=== PATIENT | female | born 1980 | race American Indian/Alaskan Native ===

== ENCOUNTER 2018-10-30 04:31 | Inpatient (IN) | payer MEDICAID ==
[2018-10-30] MEDS ORDERED: PITOCin/NS 20 UNIT/1000ML DRIP 20,000 MILLIUNITS/1,000 ML BAG IV ONE (04:53)
[2018-10-30] MEDS ORDERED: XYLOCAINE 2% INFILTRATI ONE (04:56)
--- NOTE | 2018-10-30 05:07 | History and Physical Report ---
History of Present Illness Date of examination: 10/30/18 Date of admission: 10/30/18 04:31 Chief complaint: s/p Home delivery History of present illness: Pt is a 38yo BF EDC 11/05/18; EGA 39 1/7 weeks who delivered at home @ 0332. She received care at [facility] [place], and course has been unremarkable. records are not available. Past History Past Medical History: no pertinent history Past Surgical History: no surgical history Social history: no significant social history - Obstetrical History Expected Date of Delivery: 11/05/18 Actual Gestation: 39 Week(s) 1 Day(s) Medications and Allergies Allergies Allergy/AdvReac Type Severity Reaction Status Date / Time No Known Allergies Allergy Verified 10/30/18 04:53 Home Medications Medication Instructions Recorded Confirmed Last Taken Type Pnv Plus Multivit Tab 1 tab PO DAILY 10/30/18 10/30/18 1 Day Ago History ~10/29/18 1100 Review of Systems All systems: negative - Vital Signs Vital signs: Vital Signs Pulse BP 80 120/65 10/30/18 04:44 10/30/18 04:44 Temp Pulse Resp BP Pulse Ox 80 120/65 10/30/18 04:44 10/30/18 04:44 - Physical Exam Breasts: Positive: deferred Cardiovascular: Regular rate Lungs: Positive: Clear to auscultation Abdomen: Positive: normal appearance, soft Genitourinary (Female): Positive: perineal/vulvar lesions (2nd degree perineal laceration - repaired with 2% lidocaine and 3-O vicryl) Vagina: Positive: normal moisture Uterus: Positive: enlarged Extremities: Positive: normal Results All other labs normal. Assessment and Plan - Patient Problems (1) (normal spontaneous vaginal delivery) Onset Date: 10/30/18 Current Visit: Yes Status: Acute Plan to address problem: A: S/P Home delivery - Doing well 2nd degree perineal laceration - repaired P: Admit to L&D Obtain records.
--- NOTE | 2018-10-30 05:12 | Procedure Note ---
OB Delivery Note - Delivery Date of Delivery: 10/30/18 Surgeon: RACHEL FONG Estimated blood loss: 100cc - Vaginal Delivery presentation: unknown Intrapartum events: precipitous labor- <3hr Delivery induction: none Delivery monitor: none Delivery placenta: spontaneous Delivery cord: 3 umbilical vessels Episiotomy: none Delivery laceration: 2nd degree Delivery repair: vicryl Anesthesia: local - Infant A at 1 minute: 9 at 5 minutes: 9 Infant Gender: Male (2999gms)
[2018-10-30] MEDS ORDERED: TYLENOL PO PRN ×2 (05:15→06:41)
[2018-10-30] MEDS ORDERED: DULCOLAX PR PRN ×2 (05:15→06:41)
[2018-10-30] MEDS ORDERED: BENADRYL PO PRN ×2 (05:15→06:41)
[2018-10-30] MEDS ORDERED: DERMOPLAST TP PRN ×2 (05:15→06:41)
[2018-10-30] MEDS ORDERED: LANSINOH TP PRN ×2 (05:15→06:41)
[2018-10-30] MEDS ORDERED: ZOFRAN IV PRN ×2 (05:15→06:41)
[2018-10-30] MEDS ORDERED: MILK OF MAGNESIA PO PRN ×2 (05:15→22:00)
[2018-10-30] MEDS ORDERED: TUCKS PAD TP PRN ×2 (05:15→06:41)
[2018-10-30] MEDS ORDERED: PHENERGAN PO PRN ×2 (05:15→06:41)
[2018-10-30] MEDS ORDERED: PHENERGAN PR PRN ×2 (05:15→06:41)
[2018-10-30 05:53] LABS: Basophils # (Auto) 0.1 K/mm3 (0.0-0.1); Basophils % (Auto) 0.6 % (0.0-1.8); Eosinophils # (Auto) 0.1 K/mm3 (0.0-0.4); Eosinophils % (Auto) 0.7 % (0.0-4.3); Hematocrit 32.4 % (30.3-42.9); Hemoglobin 10.7 gm/dl (10.1-14.3); Lymphocytes # (Auto) 1.6 K/mm3 (1.2-5.4); Lymphocytes % (Auto) 14.2 % (13.4-35.0); Mean Corpuscular HGB Conc 33 % (30-34); Mean Corpuscular Volume 84 fl (79-97); Monocytes # (Auto) 1.4 K/mm3 (0.0-0.8); Platelet Count 185 K/mm3 (140-440); Red Blood Count 3.86 M/mm3 (3.65-5.03); Red Cell Distribution Width 15.1 % (13.2-15.2)
[2018-10-30] MEDS ORDERED: PITOCin/NS 20 UNIT/1000ML DRIP 20 UNITS/1,000 ML BAG IV SCH ×2 (06:00→06:41)
[2018-10-30] MEDS ORDERED: SODIUM CHLORIDE FLUSH SYRINGE 10 ML IV PRN (06:00)
[2018-10-30] MEDS: IBUPROFEN PO SCH ×2 (06:09→12:38)
[2018-10-30] MEDS: SENOKOT S PO SCH ×2 (06:09→21:31)
[2018-10-30] MEDS ORDERED: SODIUM CHLORIDE FLUSH SYRINGE 10 ML IV NR (06:41)
[2018-10-30] MEDS ORDERED: SENOKOT S PO SCH (06:41)
[2018-10-30] MEDS ORDERED: IBUPROFEN PO SCH (06:41)
[2018-10-30] MEDS: NORCO 5/325 PO PRN ×2 (08:07→20:02)
[2018-10-30] MEDS ORDERED: FEOSOL PO SCH (10:00)
[2018-10-30] MEDS ORDERED: PRENATAL VITAMIN PO SCH (10:00)
[2018-10-30] MEDS: PRENATAL VITAMIN PO SCH (10:37)
[2018-10-30] MEDS: FEOSOL PO SCH ×2 (12:41→21:31)
[2018-10-30 18:52] LABS: Hemoglobin 9.7 gm/dl (10.1-14.3)
[2018-10-31] MEDS: IBUPROFEN PO SCH ×5 (00:49→23:49)
[2018-10-31] MEDS: NORCO 5/325 PO PRN ×2 (04:11→18:22)
[2018-10-31] MEDS ORDERED: M-M-R II VACCINE SUB-Q ONE (05:15)
[2018-10-31] MEDS ORDERED: BOOSTRIX IM ONE (06:00)
[2018-10-31] MEDS: FEOSOL PO SCH ×2 (09:07→22:11)
[2018-10-31] MEDS: SENOKOT S PO SCH ×2 (09:08→22:10)
[2018-10-31] MEDS: PRENATAL VITAMIN PO SCH (09:08)
--- NOTE | 2018-10-31 11:05 | Progress Note ---
Assessment and Plan - Patient Problems (1) (normal spontaneous vaginal delivery) Onset Date: 10/30/18 Current Visit: Yes Status: Resolved Plan to address problem: A: S/P PPD#1 - Doing well Asymptomatic anemia - stable P: May go home tomorrow. Subjective - Subjective Date of service: 10/31/18 Principal diagnosis: s/p Home delivery - PPD #1 Interval history: Pt is feeling well without complaints. Bleeding improved. Patient reports: appetite normal, voiding normally, pain well controlled, flatus, ambulating normally, no dizzy ambulation, no nauseated [place]: doing well, nursing well Objective - Vital Signs Latest vital signs: Vital Signs Temp Pulse Resp BP 10/31/18 08:40 98.3 F 72 18 102/70 10/31/18 00:00 98.7 F 68 18 111/75 10/30/18 19:30 98.4 F 62 18 99/71 10/30/18 16:03 98.2 F 72 18 99/57 10/30/18 12:16 98.6 F 75 18 108/59 Intake and Output 10/30/18 10/31/18 10/31/18 22:59 06:59 14:59 Intake Total 480 300 480 Output Total 1400 Balance -920 300 480 Intake: Oral 480 480 Intake, Free Water 300 Output: Urine 1400 Void 1400 Other: Total, Intake Amount 480 480 Total, Output Amount 800 # Voids Void 3 - Exam Breasts: Present: deferred Abdomen: Present: normal appearance, soft Uterus: Present: normal, firm, fundal height below umbilicus - Labs Labs: Abnormal lab results 10/30/18 Range/Units 18:09 Hgb 9.7 L (10.1-14.3) gm/dl Hct 29.0 L (30.3-42.9) % Laboratory Tests 10/30/18 10/30/18 10/30/18 05:00 05:00 05:00 WBC 11.5 H RBC 3.86 Hgb 10.7 Hct 32.4 MCV 84 MCH 28 MCHC 33 RDW 15.1 Plt Count 185 Lymph % (Auto) 14.2 Brooke % (Auto) 12.0 H Eos % (Auto) 0.7 Baso % (Auto) 0.6 Lymph # 1.6 Brooke # 1.4 H Eos # 0.1 Baso # 0.1 Seg Neutrophils % 72.5 H Seg Neutrophils # 8.3 H RPR Hep Bs Antigen Non-reactive HIV 1&2 Antibody Rapid HIV P24 Antigen Rubella IgG Antibody Immune Blood Type Antibody Screen 10/30/18 10/30/18 10/30/18 05:00 05:00 05:00 WBC RBC Hgb Hct MCV MCH MCHC RDW Plt Count Lymph % (Auto) Brooke % (Auto) Eos % (Auto) Baso % (Auto) Lymph # Brooke # Eos # Baso # Seg Neutrophils % Seg Neutrophils # RPR Nonreactive Hep Bs Antigen HIV 1&2 Antibody Rapid Non react HIV P24 Antigen Non react Rubella IgG Antibody Blood Type A POSITIVE Antibody Screen Negative 10/30/18 18:09 WBC RBC Hgb 9.7 L Hct 29.0 L MCV MCH MCHC RDW Plt Count Lymph % (Auto) Brooke % (Auto) Eos % (Auto) Baso % (Auto) Lymph # Brooke # Eos # Baso # Seg Neutrophils % Seg Neutrophils # RPR Hep Bs Antigen HIV 1&2 Antibody Rapid HIV P24 Antigen Rubella IgG Antibody Blood Type Antibody Screen
--- NOTE | 2018-10-31 11:48 | Discharge Summary ---
Providers - Providers Date of Admission: 10/30/18 04:31 Date of discharge: 11/01/18 Attending physician: RACHEL FONG Primary care physician: RACHEL FONG Hospitalization Reason for admission: other (s/p Home delivery) Delivery: Episiotomy: none Laceration: 2nd degree (perineal) Other procedures: none complications: none Discharge diagnosis: IUP at term delivered [place] baby: male Hospital course: Unremarkable. Condition at discharge: Good Disposition: DC-01 TO HOME OR SELFCARE - Discharge Diagnoses (1) (normal spontaneous vaginal delivery) Status: Resolved Plan - Discharge Medications Prescriptions: Benzocaine/Menthol [Dermoplast] 1 spray TP PRN PRN #1 can PRN Reason: Episiotomy Pain Ferrous Sulfate [Feosol 325 MG tab] 325 mg PO BID #60 tablet Ibuprofen [Motrin 600 MG tab] 600 mg PO Q6H #30 tablet Vit-Fe Fumar-FA [ Vitamin] 1 each PO QDAY #30 tablet - Provider Discharge Summary Activity: routine, no sex for 6 weeks, no heavy lifting 4 weeks, no strenuous exercise Diet: routine Instructions: routine Additional instructions: [] Smoking cessation referral if applicable(refer to patient education folder for contact #) [] Refer to [facility] Booklet Call your doctor immediately for: * Fever > 100.5 * Heavy vaginal bleeding ( >1 pad per hour) * Severe persistent headache * Shortness of breath * Reddened, hot, painful area to leg or breast * Drainage or odor from incision. * Keep incision clean and dry at all times and follow doctor's instructions regarding bathing/showering - Follow up plan Follow up: RACHEL FONG MD [Primary Care Provider] - 6 Weeks Forms: [facility] Discharge Summary
[2018-11-01] MEDS: IBUPROFEN PO SCH ×2 (05:47→12:00)
[2018-11-01] MEDS: FEOSOL PO SCH (10:14)
[2018-11-01] MEDS: PRENATAL VITAMIN PO SCH (10:14)
[2018-11-01] MEDS: SENOKOT S PO SCH (10:15)
[2018-11-01 13:14] VITALS: BP 107/63
== END 2018-11-01 14:00 | disposition home or self-care (01) | DRG 775 ==
LOC: LD 04:31 → OB 06:39
PROVIDERS: ADMIT Obstetrics & Gynecology; ATTEND Obstetrics & Gynecology
PROC: 10E0XZZ Delivery of Products of Conception, External Approach (ICD-10-PCS; principal; 2018-10-30)
PROC: 0KQM0ZZ Repair Perineum Muscle, Open Approach (ICD-10-PCS; 2018-10-30)
DX: O70.1 Second degree perineal laceration during delivery (principal); Z37.0 Single live birth; O90.81 Anemia of the puerperium; D64.9 Anemia, unspecified; Z3A.39 39 weeks gestation of pregnancy
CPT/HCPCS: 36415; 85014; 85018; 85025; 86592; 86706; 86762; 86850; 86900; 86901; 87806; 90707; G0378; J2590